=== PATIENT | male | born 1960 | race Caucasian/White ===

== ENCOUNTER 2017-01-02 07:02 | Day surgery (SDC) | payer BC ==
[2016-12-27 13:26] LABS: HEMATOCRIT 45.2 % (40.0-51.0); HEMOGLOBIN 15.3 g/dL (13.6-17.8)
--- NOTE | ~2017-01-02 | OP ---
Record Of Operation [facility] [address] [place]. [address] NAME: FREDRICK TERAN : 56 STATUS : REG [facility] PAT#: [id number] AGE: 56 ADM/REG DATE : 01/02/17 MR#: [id number] REPORT SERV DATE: 01/02/17 DICTATED BY: JONO FRIAS DATE: 01/02/17 REPORT STATUS : Draft TRANSCRIBED BY: MODL DATE: 01/02/17 DATE OF PROCEDURE: 01/02/2017 PREOPERATIVE DIAGNOSIS: Cervical degenerative disc disease, herniated nucleus pulposus with radiculopathy C5-6 and C6-7. POSTOPERATIVE DIAGNOSIS: Cervical degenerative disc disease, herniated nucleus pulposus with radiculopathy C5-6 and C6-7. PROCEDURE: 1. Microscopic and navigation-assisted surgery. 2. Anterior cervical diskectomy and foraminotomy, C5-6 and C6-7. 3. Implantation of Prestige LP disc arthroplasty, C5-6, C6-7. SURGEON: Jono Frias D.O. PLATE SHEAR OPERATOR: Nolan Arevalo. ANESTHESIA: General. BLOOD LOSS: Less than 20 mL. INDICATIONS FOR SURGERY: A 56-year-old male with rather severe neck pain, shoulder, and arm pain that has been intractable and unresponsive to time, medication, physical therapy, etc. Plain x-rays reveal some degree of spondylosis but MRI shows disc herniation, impingement on the nerves at both C5-6 and C6-7. He has failed usual forms of conservative care and now brought to surgery for the above procedure. The patient was very adamant about not having a fusion. The patient was agreeable to an arthroplasty. His work requires full mobility of his neck. Thus, he is brought to surgery for the above procedure having failed conservative care. Prior to surgery, risks, benefits, alternatives, and expectations were explained. Consent form is signed. Also please note, because of the complexity of surgery and the need to identify correct level of surgery intraoperatively and desire to carry out the safest and most precise dissection, I feel intraoperative navigation is mandatory. PROCEDURE IN DETAIL: Antibiotic prophylaxis was given. Neurophysiology monitoring leads were inserted. The patient was brought to the operative suite. General anesthetic including endotracheal intubation were administered. The patient was placed in a supine position on fluoroscopic Angel spine frame. A small bolster was placed behind the shoulders. The neck was in a neutral alignment. The scalp was painted with Betadine solution. Davies three-point fixation attached to the skull using 60 pounds torque in standard position. The Davies was attached to the Angel bed. Isolation drapes were placed. The neck was scrubbed with Hibiclens solution. DuraPrep was painted. Sterile drapes applied. Record Of Operation [facility] [address] [place]. [address] NAME: FREDRICK TERAN : 56 STATUS : REG [facility] PAT#: [id number] AGE: 56 ADM/REG DATE : 01/02/17 MR#: [id number] REPORT SERV DATE: 01/02/17 DICTATED BY: JONO FRIAS DATE: 01/02/17 REPORT STATUS : Draft TRANSCRIBED BY: ORESTES DATE: 01/02/[address] scan with O-arm obtained, CT information used to register the navigational system. With navigational assistance, I identified C5-6 and C6-7. At the mid body of C6, on the left side, a transverse 2.5 cm Davis-De Los Santos incision was carried out of the platysma as well as incised in line with the skin incision. The superficial layer of the deep cervical fascia was released along the anterior border of the sternocleidomastoid. Blunt dissection was carried out to the retropharyngeal space where the longus coli muscles were subperiosteally elevated. Retractors were placed. The microscope was sterilely draped and used throughout the remainder of the procedure. With navigational assistance, I identified the midbody of C6 and C7. Ransom distractor pins were placed. Initially, the anterior longitudinal ligament was incised. The disc was carefully removed anterior to posterior with curettes and rongeurs. I used navigation to identify the lateral boundaries of the uncinate processes. I used a cutting bur and a 3 mm and 2 mm jarrod bur to carry out a wide foraminotomy left and right side. The posterior longitudinal ligament was taken down with a 1 mm Kerrison rongeur, and this created a complete decompression of both the central canal and the foramen. The endplate cartilage completely removed. The width, depth, and height of the disc space was measured. Intraoperative fluoroscopy was then used and we determined the appropriate height and depth of the implant. We chose a 6 x 18 mm implant at C6-7. The trial was removed. The drill guide was placed. We checked the rotation with C-arm intraoperatively. We then under C-arm guidance placed the drill guide. We drilled all four holes followed by the rail cutting guide. The rail cutter guide was placed appropriately. This was followed by irrigation and final implantation of the implant itself. Again, all of these steps were taken with C-arm guidance. After final implantation, there was no bleeding. The implant looked in excellent alignment both on AP and lateral x-ray. The retractor was then readjusted proximal to C5-6 where again the same identical steps were undertaken with diskectomy, wide foraminotomy, intradiscal trial, and the only difference is that we used a slightly smaller implant 6 x 16 and this again was the Prestige LP implant same as had been used at C6-7. After the drill guide was placed and the rail cutter was used, the permanent implant was then placed. Final AP and lateral x-rays were taken showing excellent position of all implants. The wound was irrigated. No bleeding was noted. There was no need for a drain. The platysma was closed with a running 3-0 Vicryl suture. The subcutaneous tissue was closed with Vicryl suture and subcuticular 4-0 PDS was used for skin closure. Sterile dressings were applied. The patient was awakened, extubated, and taken to recovery room in satisfactory condition having tolerated procedure well. Sponge, needle, and instrument counts were correct. No intraoperative complications noted. /ORESTES Jono Record Of Operation [facility] [id number] [facility] [place]. [address] NAME: FREDRICK TERAN : 56 STATUS : REG [facility] PAT#: [id number] AGE: 56 ADM/REG DATE : 01/02/17 MR#: [id number] REPORT SERV DATE: 01/02/17 DICTATED BY: JONO FRIAS DATE: 01/02/17 REPORT STATUS : Draft TRANSCRIBED BY: MODL DATE: 01/02/17 Yolande Frias / [id number] CC: Leslie Jessica M.D.
[~2017-01-02 07:02] MED LIST: NORCO1 TA1 PO; SUDAFED PO; VOLTXR100 PO; WELLSR150 PO
== END 2017-01-02 16:48 | disposition home or self-care (01) ==
LOC: SDC 07:02
PROVIDERS: Orthopaedic Surgery Orthopaedic Surgery of the Spine
PROC: 0RU30JZ Supplement Cervical Vertebral Disc with Synthetic Substitute, Open Approach (ICD-10-PCS; principal; 2017-01-02 08:45)
DX: M50.122 Cervical disc disorder at C5-C6 level with radiculopathy (principal); M50.123 Cervical disc disorder at C6-C7 level with radiculopathy; M48.02 Spinal stenosis, cervical region; Z79.899 Other long term (current) drug therapy; Z98.890 Other specified postprocedural states
CPT/HCPCS: 36415; 85014; 85018; 87641; 88304; 88311; 93005; A9270-GY; C1713; J0360; J0690; J2250; J2405; J2710; J3010